=== PATIENT | female | born 1955 | race African-American/Black ===

== ENCOUNTER 2018-05-21 17:29 | Emergency (ER) | payer BC ==
[2018-05-21 17:41] VITALS: BP 123/96; PULSE 98; TEMP 98.2; BMI 25.0
--- NOTE | 2018-05-21 17:41 | PDOC ---
Rapid Medical Evaluation Chief Complaint: Chronic pain Time Seen by Provider: 05/21/18 17:39 Medical Evaluation: Allergies Allergy/AdvReac Type Severity Reaction Status Date / Time No Known Allergies Allergy Unverified 07/27/11 08:18 05/21/18 17:39 I have performed a brief in-person evaluation of this patient. The patient presents with a chief complaint of: acute on chronic LUE pain Pertinent physical exam findings: tender anterior left shoulder capsule I have ordered the following: Toradol The patient will proceed to the ED for further evaluation. Discharge Disposition - Diagnosis Left shoulder pain - Referrals - Patient Instructions - Post Discharge Activity
[2018-05-21] MEDS ORDERED: KETOROLAC TROMETHAMINE 60 MG/2 ML VIAL IM ONE (18:04)
[2018-05-21] MEDS ORDERED: KETOROLAC TROMETHAMINE 60 MG/2 ML VIAL ONE (18:05)
--- NOTE | 2018-05-21 18:09 | PDOC ---
History of Present Illness - General Chief Complaint: Chronic pain Stated Complaint: SHOULDER/ELBOW PAIN Time Seen by Provider: 05/21/18 17:39 - History of Present Illness Initial Comments: 05/21/18 18:06 62-year-old female with a past medical history significant for hypertension and hypothyroidism presents for evaluation of left shoulder pain. She states she received a cortisone shot about a week and a half ago for calcific tendinitis but shot did not work and she require surgery at the urging of her orthopedic surgeon she was told follow-up in the emergency room for shot of Toradol Past History - Past Medical History Allergies/Adverse Reactions: Allergies Allergy/AdvReac Type Severity Reaction Status Date / Time No Known Allergies Allergy Unverified 05/21/18 17:41 Home Medications: Ambulatory Orders Amlodipine Besylate 10 mg PO ASDIR 05/21/18 Levothyroxine [Synthroid -] 25 mcg PO DAILY 05/21/18 COPD: No HTN: Yes Thyroid Disease: Yes (hyper) - Suicide/Smoking/Psychosocial Hx Smoking Status: No Smoking History: Never smoked Have you smoked in the past 12 months: No Number of Cigarettes Smoked Daily: 0 Cigars Per Day: 0 Information on smoking cessation initiated: No Hx Alcohol Use: No Drug/Substance Use Hx: No Substance Use Type: None Review of Systems - Review of Systems Musculoskeletal: Yes: Joint Pain *Physical Exam - Vital Signs Last Vital Signs Temp Pulse Resp BP Pulse Ox 98.2 F 98 H 18 123/96 100 05/21/18 17:38 05/21/18 17:38 05/21/18 17:38 05/21/18 17:38 05/21/18 17:38 - Physical Exam Comments: 05/21/18 18:07 Left shoulder skin color and temperature are normal range of motion is limited secondary to pain she resists supraspinous isolation and strength testing. Impingement maneuvers are not done secondary to pain and discomfort she has no gross sensorimotor deficit she is neurovascular intact *DC/Admit/Observation/Transfer Diagnosis at time of Disposition: Left shoulder pain - Discharge Dispostion Disposition: HOME Condition at time of disposition: Stable Decision to Admit order: No - Referrals - Patient Instructions Printed Discharge Instructions: Calcific Tendonitis of the Shoulder Additional Instructions: Return to the emergency room should symptoms worsen or go unresolved. Please follow-up with orthopedic surgeon as scheduled - Post Discharge Activity
== END 2018-05-21 18:10 | disposition home or self-care (01) ==
LOC: JERFT 17:29
PROC: 3E0233Z Introduction of Anti-inflammatory into Muscle, Percutaneous Approach (ICD-10-PCS; principal; 2018-05-21)
DX: M75.32 Calcific tendinitis of left shoulder (principal); I10 Essential (primary) hypertension; E03.9 Hypothyroidism, unspecified
CPT/HCPCS: 99281-25

== ENCOUNTER 2018-11-27 17:42 | Emergency (ER) | payer BC | END 2018-11-27 19:10 | disposition home or self-care (01) | LOC: JER 17:42 → JERFT 19:10 ==

== ENCOUNTER 2022-07-04 04:16 | Day surgery (SDC) | payer OTHER, BC ==
[2022-06-27 12:18] VITALS: BMI 25.8
[2022-07-04] MEDS ORDERED: BUPIVACAINE HCL/PF 0.5% (5MG/ML) 10 ML VIAL ONE (07:32)
[2022-07-04] MEDS ORDERED: MIDAZOLAM HCL 2 MG/2 ML SINGLE DOSE VIAL ONE (09:04)
[2022-07-04] MEDS ORDERED: LIDOCAINE HCL/PF 2% SDV 5ML VIAL ONE (09:04)
[2022-07-04] MEDS ORDERED: PROPOFOL 20 ML ONE (09:04)
[2022-07-04] MEDS ORDERED: FENTANYL CITRATE/PF 50 MCG/ML VIAL ONE ×4 (09:04→10:42)
[2022-07-04] MEDS ORDERED: DEXAMETHASONE SOD PHOSPHATE 4 MG/1 ML VIAL ONE (09:31)
[2022-07-04] MEDS ORDERED: ONDANSETRON 4 MG/2 ML VIAL ONE (09:31)
[2022-07-04] MEDS ORDERED: KETOROLAC TROMETHAMINE 30 MG/1 ML VIAL ONE (09:36)
[2022-07-04] MEDS ORDERED: ACETAMINOPHEN 1000 MG/100 ML BAG IVPB ONE ×2 (10:12→10:17)
[2022-07-04] MEDS ORDERED: ONDANSETRON 4 MG/2 ML VIAL IVPUSH PRN (10:12)
[2022-07-04] MEDS ORDERED: ACETAMINOPHEN INJECTION 100 ML IVPB ONE (10:14)
[2022-07-04] MEDS ORDERED: LACTATED RINGERS SOLUTION 1,000 ML IV SCH (10:15)
[2022-07-04 12:48] VITALS: BP 145/78; PULSE 55; TEMP 97.5
[2022-07-04 15:47] VITALS: RESP 18
== END 2022-07-04 13:50 | disposition home or self-care (01) ==
LOC: JASU-SURG 04:16
PROVIDERS: ATTEND Orthopaedic Surgery
PROC: 0SBC4ZZ Excision of Right Knee Joint, Percutaneous Endoscopic Approach (ICD-10-PCS; 2022-07-04)
PROC: 0SBC4ZZ Excision of Right Knee Joint, Percutaneous Endoscopic Approach (ICD-10-PCS; principal; 2022-07-04 09:00)
DX: M23.221 Derangement of posterior horn of medial meniscus due to old tear or injury, right knee (principal); M23.261 Derangement of other lateral meniscus due to old tear or injury, right knee
CPT/HCPCS: 94760; 97116-GP

== ENCOUNTER 2022-10-03 11:45 | Emergency (ER) | payer OTHER, BC ==
[2022-10-03 12:03] VITALS: BP 144/96; PULSE 90; RESP 18; TEMP 98.1; BMI 26.6
[2022-10-03] MEDS ORDERED: DEXAMETHASONE SOD PHOSPHATE 10 MG/1 ML VIAL IVPUSH ONE (12:58)
[2022-10-03] MEDS ORDERED: ALBUTEROL SO4 2.5/IPRATROPIUM 0.5 INH SOL 3 ML VIAL.NEB. NEB SCH (13:00)
[2022-10-03] MEDS ORDERED: DEXAMETHASONE SOD PHOSPHATE 10 MG/1 ML VIAL ONE (13:12)
[2022-10-03] MEDS ORDERED: ALBUTEROL SO4 2.5/IPRATROPIUM 0.5 INH SOL 3 ML VIAL.NEB. NEB ONE ×2 (13:13→13:41)
[2022-10-03 13:35] LABS: BASO % 0.5 % (0-2.0); EOS % 1.6 % (0-4.5); HEMATOCRIT 39.4 % (32.4-45.2); HEMOGLOBIN 13.4 GM/dL (10.7-15.3); MCH 30.3 pg (25.7-33.7); MCHC 34.1 g/dl (32.0-36.0); MEAN CELL VOLUME 88.8 fl (80-96); MEAN PLT VOLUME 7.4 fl (7.5-11.1); NEUT % 49.9 % (42.8-82.8); PLATELET COUNT 245 10^3/uL (134-434); RBC 4.43 M/mm3 (3.60-5.2); RDW 13.1 % (11.6-15.6); WHITE BLOOD COUNT 5.1 K/mm3 (4.0-10.0)
[2022-10-03 14:02] LABS: CALCIUM 9.4 mg/dL (8.5-10.1)
[2022-10-03 14:03] LABS: ALBUMIN 3.9 g/dl (3.4-5.0); BLOOD UREA NITROGEN 18.5 mg/dL (7-18)
[2022-10-03 14:07] LABS: TOT PROT 7.7 g/dl (6.4-8.2)
[2022-10-03 14:08] LABS: BILIRUBIN,TOTAL 0.4 mg/dL (0.2-1)
== END 2022-10-03 15:43 | disposition home or self-care (01) ==
LOC: JERFT 11:45 → JER 11:45 → JERFT 15:43
PROC: 3E033GC Introduction of Other Therapeutic Substance into Peripheral Vein, Percutaneous Approach (ICD-10-PCS; principal; 2022-10-03)
PROC: 3E0F7GC Introduction of Other Therapeutic Substance into Respiratory Tract, Via Natural or Artificial Opening (ICD-10-PCS; 2022-10-03)
DX: J45.909 Unspecified asthma, uncomplicated (principal); J06.9 Acute upper respiratory infection, unspecified; R07.0 Pain in throat; R51.9 Headache, unspecified; Z20.822 Contact with and (suspected) exposure to COVID-19
CPT/HCPCS: 36415; 71046-TC-FY; 80053; 85025; 85379; 99285-25; J1100

== ENCOUNTER 2023-06-15 05:58 | Emergency (ER) | payer OTHER, BC ==
[2023-06-15 06:28] VITALS: TEMP 98.6; BMI 25.8
[2023-06-15] MEDS ORDERED: ACETAMINOPHEN 325 MG TABLET (FP) PO ONE (07:24)
[2023-06-15] MEDS ORDERED: ACETAMINOPHEN 325 MG TABLET (FP) ONE (07:50)
[2023-06-15] MEDS ORDERED: SODIUM CHLORIDE 1,000 ML IV ONE (08:02)
[2023-06-15] MEDS ORDERED: METOCLOPRAMIDE HCL INJECTION 10 MG/2 ML VIAL IVPUSH ONE (08:02)
[2023-06-15] MEDS ORDERED: METOCLOPRAMIDE HCL INJECTION 10 MG/2 ML VIAL ONE (08:15)
[2023-06-15 09:24] LABS: INR 1.1 (0.83-1.09); PROTHROMBIN TIME (PATIENT) 12.7 SEC (9.7-13.0)
[2023-06-15 09:25] LABS: BASO % 0.6 % (0-2.0); EOS % 0.2 % (0-4.5); HEMOGLOBIN 13.3 GM/dL (10.7-15.3); LYMPH % 22.9 % (8-40); MCH 30.2 pg (25.7-33.7); MCHC 33.2 g/dl (32.0-36.0); MEAN CELL VOLUME 91.1 fl (80-96); MONO % 9.6 % (3.8-10.2); NEUT % 66.7 % (42.8-82.8); PLATELET COUNT 229 10^3/uL (134-434); RBC 4.39 M/mm3 (3.60-5.2); RDW 12.8 % (11.6-15.6); WHITE BLOOD COUNT 6.6 K/mm3 (4.0-10.0)
[2023-06-15 09:35] LABS: POTASSIUM 3.8 mmol/L (3.5-5.1)
[2023-06-15 09:37] LABS: CALCIUM 8.5 mg/dL (8.5-10.1)
[2023-06-15 09:38] LABS: ALBUMIN 3.7 g/dl (3.4-5.0); BLOOD UREA NITROGEN 11.7 mg/dL (7-18)
[2023-06-15 09:41] LABS: CREATININE 0.8 mg/dL (0.55-1.3)
[2023-06-15 09:42] LABS: BILIRUBIN,TOTAL 0.4 mg/dL (0.2-1); TOT PROT 7.4 g/dl (6.4-8.2)
[2023-06-15 10:19] VITALS: BP 148/77; PULSE 66; RESP 18
== END 2023-06-15 10:19 | disposition home or self-care (01) ==
LOC: JER 05:58
PROC: 3E033GC Introduction of Other Therapeutic Substance into Peripheral Vein, Percutaneous Approach (ICD-10-PCS; principal; 2023-06-15)
PROC: 3E0337Z Introduction of Electrolytic and Water Balance Substance into Peripheral Vein, Percutaneous Approach (ICD-10-PCS; 2023-06-15)
DX: J10.1 Influenza due to other identified influenza virus with other respiratory manifestations (principal); R51.9 Headache, unspecified; R00.1 Bradycardia, unspecified; M79.10 Myalgia, unspecified site; R09.81 Nasal congestion; Z20.822 Contact with and (suspected) exposure to COVID-19
CPT/HCPCS: 0241U-QW; 36415; 71045-TC-FY; 80053; 85025; 85610; 93005; 93010; 99285-25

== ENCOUNTER 2023-08-26 17:04 | Emergency (ER) | payer OTHER, BC ==
[2023-08-26 17:27] VITALS: RESP 18; TEMP 98; BMI 25.8
[2023-08-26] MEDS ORDERED: METOCLOPRAMIDE HCL INJECTION 10 MG/2 ML VIAL ONE (19:14)
[2023-08-26] MEDS: METOCLOPRAMIDE HCL INJECTION 10 MG/2 ML VIAL IVPB ONE (19:36)
[2023-08-26] MEDS: LACTATED RINGERS SOLUTION 1000 ML INFUS.BAG IV ONE (19:36)
[2023-08-26 19:42] LABS: BASO % 0.7 % (0-2.0); EOS % 1.4 % (0-4.5); HEMATOCRIT 39.7 % (32.4-45.2); HEMOGLOBIN 13.3 GM/dL (10.7-15.3); LYMPH % 40.5 % (8-40); MCH 30.2 pg (25.7-33.7); MCHC 33.4 g/dl (32.0-36.0); MEAN CELL VOLUME 90.3 fl (80-96); MEAN PLT VOLUME 8.3 fl (7.5-11.1); MONO % 9.1 % (3.8-10.2); NEUT % 48.3 % (42.8-82.8); PLATELET COUNT 268 10^3/uL (134-434); RDW 12.8 % (11.6-15.6)
[2023-08-26 20:05] LABS: POTASSIUM 3.9 mmol/L (3.5-5.1)
[2023-08-26] MEDS ORDERED: ACETAMINOPHEN INJECTION 100 ML IVPB ONE (20:07)
[2023-08-26] MEDS ORDERED: PROCHLORPERAZINE INJECTION 10 MG/2 ML VIAL ONE (20:07)
[2023-08-26 20:10] LABS: ALBUMIN 3.5 g/dl (3.4-5.0); BLOOD UREA NITROGEN 14.6 mg/dL (7-18); CALCIUM 9.1 mg/dL (8.5-10.1)
[2023-08-26 20:11] LABS: MAGNESIUM 1.7 mg/dL (1.8-2.4)
[2023-08-26 20:13] LABS: CREATININE 0.9 mg/dL (0.55-1.3)
[2023-08-26] MEDS: PROCHLORPERAZINE INJECTION 10 MG/2 ML VIAL IVPB ONE (20:14)
[2023-08-26] MEDS: ACETAMINOPHEN 1000 MG/100 ML BAG IVPB ONE (20:14)
[2023-08-26 20:15] LABS: BILIRUBIN,TOTAL 0.4 mg/dL (0.2-1); TOT PROT 6.7 g/dl (6.4-8.2)
[2023-08-26 20:20] LABS: VENOUS BASE EXCESS -1.5 mmol/L (-2-2); VENOUS O2 SATURATION 96.8 % (70-80); VENOUS PCO2 35.9 mmHg (38-52); VENOUS PH 7.416 (7.310-7.410)
[2023-08-26 20:37] LABS: INR 0.94 (0.83-1.09); PROTHROMBIN TIME (PATIENT) 10.9 SEC (9.7-13.0)
[2023-08-26 20:39] LABS: ACTIVATED PTT 25.9 SECONDS (25.2-36.5)
[2023-08-26] MEDS ORDERED: MAGNESIUM 1GM/D5W - 1 GM/100 ML IVPB IVPB ONE (21:30)
[2023-08-26] MEDS: MAGNESIUM SULF 50% (8.12 MEQ/2 ML-1 GM VIAL) IVPB ONE (22:01)
[2023-08-26 23:05] VITALS: BP 124/72; PULSE 70
== END 2023-08-26 23:05 | disposition home or self-care (01) ==
LOC: JER 17:04
PROC: 3E033NZ Introduction of Analgesics, Hypnotics, Sedatives into Peripheral Vein, Percutaneous Approach (ICD-10-PCS; principal; 2023-08-26)
PROC: 3E033GC Introduction of Other Therapeutic Substance into Peripheral Vein, Percutaneous Approach (ICD-10-PCS; 2023-08-26)
PROC: 3E033GC Introduction of Other Therapeutic Substance into Peripheral Vein, Percutaneous Approach (ICD-10-PCS; 2023-08-26)
DX: R42 Dizziness and giddiness (principal); R51.9 Headache, unspecified; Z20.822 Contact with and (suspected) exposure to COVID-19
CPT/HCPCS: 0241U-QW; 36415; 70450-TC; 71045-TC-FY; 80053; 82803; 83735; 84484; 85025; 85610; 85730; 86850; 86900; 86901; 93005; 93010; 99285-25; J0131

== ENCOUNTER 2024-06-05 12:43 | Emergency (ER) | payer OTHER, BC ==
[2024-06-05 12:52] VITALS: TEMP 98.7; BMI 25.0
[2024-06-05] MEDS ORDERED: ACETAMINOPHEN 325 MG TABLET (FP) ONE (13:40)
[2024-06-05] MEDS ORDERED: ACETAMINOPHEN INJECTION 100 ML ONE (13:49)
[2024-06-05] MEDS: ACETAMINOPHEN 500 MG TABLET (FP) PO ONE (13:53)
[2024-06-05] MEDS: ACETAMINOPHEN 1000 MG/100 ML BAG IVPB ONE (15:11)
[2024-06-05 15:12] LABS: HEMATOCRIT 38.5 % (32.4-45.2); MCH 30.3 pg (25.7-33.7); MCHC 33.6 g/dl (32.0-36.0); MEAN CELL VOLUME 90.2 fl (80-96); MEAN PLT VOLUME 7.1 fl (7.5-11.1); PLATELET COUNT 356 10^3/uL (134-434); RBC 4.27 M/mm3 (3.60-5.2); RDW 12.9 % (11.6-15.6); WHITE BLOOD COUNT 6.8 K/mm3 (4.0-10.0)
[2024-06-05 15:21] LABS: ACTIVATED PTT 32.7 SECONDS (25.2-36.5)
[2024-06-05 15:28] LABS: POTASSIUM 4.3 mmol/L (3.5-5.1)
[2024-06-05 15:30] LABS: CALCIUM 9.7 mg/dL (8.5-10.1)
[2024-06-05 15:31] LABS: ALBUMIN 3.6 g/dl (3.4-5.0); BLOOD UREA NITROGEN 15.9 mg/dL (7-18)
[2024-06-05 15:33] LABS: CREATININE 0.8 mg/dL (0.55-1.3)
[2024-06-05 15:35] LABS: BILIRUBIN,TOTAL 0.3 mg/dL (0.2-1); TOT PROT 7.7 g/dl (6.4-8.2)
[2024-06-05 15:48] LABS: INR 1.05 (0.83-1.09); PROTHROMBIN TIME (PATIENT) 12.1 SEC (9.7-13.0)
[2024-06-05 16:30] LABS: ANISOCYTOSIS 0; HELMET CELLS 0; HOWELL-JOLLY BODIES 0; MACROCYTOSIS 0; OVALOCYTE 0; ROULEAU 0; SICKELED CELLS 0; TARGET CELLS 0; TEAR DROP CELLS 0; TOXIC GRANULATION 0
[2024-06-05] MEDS ORDERED: AZITHROMYCIN 500 MG TABLET ONE (16:47)
[2024-06-05 16:57] VITALS: BP 179/90; PULSE 87; RESP 18
[2024-06-05] MEDS: AZITHROMYCIN 250 MG TABLET PO ONE (16:58)
[2024-06-05 19:15] LABS: HIV INTERPRETATION NEGATIVE (NEGATIVE)
== END 2024-06-05 16:58 | disposition home or self-care (01) ==
LOC: JER 12:43
PROC: 3E033NZ Introduction of Analgesics, Hypnotics, Sedatives into Peripheral Vein, Percutaneous Approach (ICD-10-PCS; principal; 2024-06-05)
DX: R07.9 Chest pain, unspecified (principal); R05.9 Cough, unspecified; R09.81 Nasal congestion; Z20.822 Contact with and (suspected) exposure to COVID-19
CPT/HCPCS: 0241U-QW; 36415; 71046-TC-FY; 80053; 84484; 85025; 85610; 85730; 86803; 87389; 93005; 93010; 99285-25; J0131